=== PATIENT | male | born 1990 ===

== ENCOUNTER 2017-10-19 20:45 | Emergency (ER) | payer OTHER ==
[~2017-10-19] VITALS: Ht 180.3 cm; Wt 96.6 kg
[2017-10-19 20:49] VITALS: TEMP 36.9; Ht 180.3 cm; Wt 96.6 kg
[2017-10-19] MEDS ORDERED: MoRPHine SULFATE 4 MG/ML 1 ML CARP\\VIAL IV STA (20:59)
[2017-10-19] MEDS ORDERED: PROPARACAINE HCL 0.5% OP SOLN 15 ML BTL OP STA (20:59)
[2017-10-19] MEDS ORDERED: ONDANSETRON INJ 2 MG/ML 2 ML VIAL IV STA (20:59)
[2017-10-19] MEDS ORDERED: PRLSR20 PO (21:14)
[2017-10-19] MEDS ORDERED: VNTHFA/IN INH (21:14)
--- NOTE | 2017-10-19 21:38 | DIAGNOSTIC IMAGING REPORT ---
HEAD WITHOUT CONTRAST (CT) CLINICAL HISTORY: 27 years-old Male with same mild headache. Acute headache TECHNIQUE: Multiple axial CT images of the head were obtained without contrast. A dose lowering technique was utilized adhering to the principles of ALARA. COMPARISON: None. FINDINGS: No acute intracranial hemorrhage, midline shift, intracranial mass, hydrocephalus, territorial ischemia or abnormal extra-axial collection. The calvarium is intact. The mastoid air cells, and middle ear cavities are clear. Moderate mucosal thickening of the ethmoid air cells with mild mucosal of the right maxillary sinus with small air-fluid level. Moderate right periorbital soft tissue swelling. IMPRESSION: 1. No acute intracranial abnormality or calvarial fracture. 2. Moderate right periorbital soft tissue swelling. 3. Paranasal sinus disease as above with air-fluid level of the right maxillary sinus suggesting acute sinusitis. The above report was generated using voice recognition software. It may contain grammatical, syntax or spelling errors. Electronically signed by: Corby Grier M.D. 10/19/2017 9:37 PM Dictated Date/Time: 10/19/2017 9:33 PM
--- NOTE | 2017-10-19 21:51 | DIAGNOSTIC IMAGING REPORT ---
FACIAL BONES-MXILLOFAC WITHOUT CLINICAL HISTORY: 27 years-old Male presenting with elbowed in R eye during basketball; R orbital swelling, bursing,. Acute right periorbital soft tissue swelling status post basketball injury. COMPARISON STUDY: CT head of same day TECHNIQUE: High-resolution CT scan of the facial bones is performed. Images are reviewed in the axial, sagittal, and coronal planes. IV contrast was not administered for this examination. A dose lowering technique was utilized adhering to the principles of ALARA. CT DOSE: 845.93 mGy.cm FINDINGS: Acute appearing fracture involving the right lamina papyracea with 3 mm medial displacement, image 37 series 5. The zygomatic arches, nasal bones, and pterygoid plates are preserved. The maxilla and mandible are intact. Moderate right periorbital and right premaxillary soft tissue swelling without opaque foreign body. Bilateral globes and appear intact. Air is noted within the infraorbital foramen, image 39 series 500 with associated subtle acute nondisplaced fracture involving the inferior right orbital wall as seen on image 30 series 500. No entrapment of the extraocular musculature. The mastoid air cells are clear. Moderate mucosal thickening of the ethmoid air cells with minimal left and mild right maxillary mucoperiosteal thickening. Small air-fluid level of the right maxillary sinus. Mild polypoid mucosal thickening of the anterior left maxillary wall. The imaged calvarium and upper cervical spine are within normal limits. Partially imaged brain parenchyma is within normal limits. IMPRESSION: 1. Acute fracture of the right lamina papyracea with 3 mm medial displacement. Additionally, there is a subtle nondisplaced fracture of the inferior right orbital wall. No extraocular muscular entrapment. 2. Moderate right periorbital and right facial soft tissue swelling. No opaque foreign body. 3. Mild to moderate degree of layering blood products within the paranasal sinuses. The above report was generated using voice recognition software. It may contain grammatical, syntax or spelling errors. Electronically signed by: Corby Grier M.D. 10/19/2017 9:50 PM Dictated Date/Time: 10/19/2017 9:37 PM
[2017-10-19] MEDS ORDERED: OXYCODONE/ACETAMINOPHEN 5-325 TAB PO ONE (22:30)
[2017-10-19 22:49] VITALS: BP 139/54; PULSE 55; O2SAT 97
--- NOTE | 2017-10-19 23:04 | EMERGENCY ROOM VISIT NOTE ---
ED Visit Note First contact with patient: 20:53 Chief Complaint: Right eye pain. History of Present Illness: Mr. Gutierrez is a 27-year-old black male who ambulates into the ED accompanied by 2 half-way guards complaining of right eye pain. Historically patient denies any previous significant injuries or surgeries to the eyes. Patient reports approximately 7 hours ago he was playing basketball at the half-way when he was elbowed in the right eye/orbital area. He reports at the time of the injury there was no loss of consciousness. Currently he reports he is having a throbbing pain around the right eye/orbit. He rates this discomfort 8/10. The pain is nonradiating. The pain worsens with palpation. He has not identified any alleviating factors related to the pain. He has not taken any medications for pain prior to arrival at the hospital. Associated with his pain he reports he has having blurry vision, bloody tears, light sensitivity and a headache. He denies dizziness, lightheadedness, overall decreased vision, other facial pain, neck pain, nausea/vomiting. Review of Systems: As noted above in history of present illness. 8 body systems were reviewed and found to be negative as noted above. Past Medical History: GERD. Current Medications: Albuterol, omeprazole. Allergies to Medications: Penicillin. Social History: Patient is currently incarcerated. Tetanus Immunization Status: Patient reports up-to-date. Physical Examination: Vital Signs: Date Time Temp Pulse Resp B/P (MAP) Pulse Ox O2 Delivery O2 Flow Rate FiO2 10/19/17 22:31 55 16 139/54 97 Room Air 10/19/17 20:49 36.9 74 18 131/63 96 Room Air GENERAL: 27-year-old male in mild to moderate distress due to pain, nontoxic- appearing, afebrile and hemodynamically stable. NEUROLOGICAL: Awake, alert and oriented to person, place and time. Answering questions appropriately and following commands. Normal gait. Cranial nerves II through XII grossly intact. Good short-term and long-term recall. SKIN: Warm, dry and pink. Face: Contusion and swelling around the right eye. There are also a superficial laceration on the upper and lower eyelid. Minimal bleeding. HEENT: Atraumatic and normocephalic. Skull: No bony deformity, bony crepitus, swelling or ecchymosis. No ferguson signs. No bleeding from the nose or the ears ; no hemotympanum. Face: Soft tissue injuries noted about the right orbit. There is tenderness throughout this area with no bony crepitus or gross deformity. PERRLA. EOMI without nystagmus. No foreign bodies noted embedded in the cornea; eyelids are through edematous to displace. He does not perceive any foreign body sensations. There is a large subconjunctival hemorrhage at the 7 o'clock position. The anterior chambers clear and I'm not able to see any blood. He does have moderate light sensitivity. I did stain the eyes and I do not find any corneal damage. Visual acuity: Right 20/25, left 20/20 without correction. I did attempt to do a eye pressures door unsuccessful. No other facial tenderness, swelling, bony deformity or crepitus. No malocclusion. Airway patent. Speech is normal and clear. No intraoral injuries. Trachea midline. No jugular venous distention. BACK: No tenderness over the bony cervical or thoracic spine. Range of motion of the cervical spine. ED Course: Patient is assessed as noted above. Patient's medication list was reviewed. Head CT: Was reviewed by myself and read by the radiologist showing no acute intracranial abnormalities or skull fractures. Facial CT: Was reviewed by myself and read by the radiologist showing acute fracture of the right lamina papyracea with 3 mm medial displacement. Subtle nondisplaced fracture of the inferior right orbital wall with no entrapment of the extraocular muscles. Moderate right periorbital and right facial swelling. Mild to moderate degree of layering blood products within paranasal sinuses. An IV lock was initiated and patient received 4 mg of morphine IV for pain and 4 mg of Zofran IV. Alcaine was used to anesthetize the eyes for examination. Patient's case was reviewed with Dr. Monroe; we agreed on diagnostic approach, treatment, disposition and plan. Patient's case was consulted with Dr. Escamilla; he recommended follow-up with Dr. Ko for further evaluation and care. Patient received 2 Percocet 5/325 mg tablets by mouth for pain prior to discharge for pain area. Chin soft tissue injuries were cleansed with antibacterial soap and water. Patient and the guards were educated about today's findings and instructed on his treatment plan; they verbalized understanding and agreement with this plan. Clinical Impression: Acute right lamina papyracea fracture. Nondisplaced fracture of the right inferior orbital wall. Right periorbital facial contusion. Superficial lacerations of the upper and lower eyelids. Disposition: Patient discharged back to half-way accompanied by his guards; prior to departure he was reassessed and subjectively reported he was feeling the same and rated his discomfort 9/10. Plan: It was recommended that the patient receive alternating doses of ibuprofen and acetaminophen every 3 hours. It was recommended that the patient receive ice for pain and swelling. Wound care and signs of infection were discussed. It was recommended that the patient follow-up with Dr. Ko for definitive care and treatment. It was recommended that the patient be returned to the emergency department for any signs of hyphema, visual changes, uncontrolled pain, uncontrolled swelling, signs of head injury or any new/concerning symptoms.
== END 2017-10-19 22:49 | disposition home or self-care (01) ==
LOC: C.EDB 20:47 → C.EDC 22:49
DX: S02.81XA Fracture of other specified skull and facial bones, right side, initial encounter for closed fracture (principal); S01.111A Laceration without foreign body of right eyelid and periocular area, initial encounter; W50.0XXA Accidental hit or strike by another person, initial encounter; Y92.149 Unspecified place in prison as the place of occurrence of the external cause; Y93.67 Activity, basketball; K21.9 Gastro-esophageal reflux disease without esophagitis; Z79.899 Other long term (current) drug therapy